=== PATIENT | male | born 1995 | race Caucasian/White ===

== ENCOUNTER 2018-11-24 11:48 | Emergency (ER) | payer OTHER, SELFPAY ==
[2018-11-24 11:50] VITALS: BP 136/74; PULSE 73; RESP 17; TEMP 36.8; O2SAT 98; BMI 29.1
--- NOTE | 2018-11-24 11:54 | RAD_ITS ---
STUDY: X-RAY - LEFT HAND, ATTENTION FIFTH FINGER REASON FOR EXAM: Male, 23 years old. Injury and laceration. TECHNIQUE: 3 view(s) of the finger were obtained. COMPARISON: None. FINDINGS: Normal metacarpal head. Normal metacarpophalangeal joint. Normal proximal phalanx. Normal middle phalanx. Nondisplaced fracture through the distal portion of the distal phalanx. Normal proximal interphalangeal joint. Normal distal interphalangeal joint. Soft tissue laceration. RAD/Finger(s) Min 2 Views IMPRESSION: Nondisplaced fracture at the tuft of the distal phalanx of the fifth finger with overlying soft tissue laceration. Electronically Signed: Otilio Plaza MD at 12:19 EST , Service support ,
--- NOTE | 2018-11-24 15:15 | ED.VISSUMM ---
- ER Visit Summary Date of Service: 11/24/18 Chief Complaint: Left fifth digit crush injury History of Present Illness: The patient is a 23 M with a left fifth digit crush injury at work prior to arrival. No other injury Physical Examination: There is a volar avulsion, there is no nailbed involvement. There is quite a bit of tenderness over the distal phalanx. Emergency Department Course and Treatment: Patient has a tuft fracture, this is presumed to be an open fracture, Ancef and tetanus were given. Patient will be placed on antibiotics, there is no wound to suture therefore Gelfoam was placed and wound was dressed. Patient will be followed up with orthopedics. Disposition: Discharge stable condition Impression: Open fifth digit tuft fracture This note was generated with [employer] dictation software. It may contain incorrect words, spelling, and punctuation that were not noted in review of the chart prior to signing ED Disposition - Plan for ED Patient: Disposition: Home or Assisted Living Instructions: ED Fx Finger Open Prescriptions: Cephalexin [Keflex] 500 mg PO 4X/DAY #20 cap Referrals: Jeevan Santiago DO [STAFF PHYSICIAN] - 3-5 Days
[2018-11-24] MEDS: Diphth,Pertuss(Acell),Tet Vac 0.5 ML Vial IM (15:32)
[2018-11-24 15:39] VITALS: PULSE 83; RESP 12
[2018-11-24 15:49] VITALS: RESP 14
--- NOTE | 2018-11-24 16:06 | ED.RN ---
spoke with pharmacy, they are having a difficult time mixing the ancef.
== END 2018-11-24 16:34 | disposition home or self-care (01) ==
PROVIDERS: Emergency Provider Emergency Medicine
DX: S62.667B Nondisplaced fracture of distal phalanx of left little finger, initial encounter for open fracture (principal); X58.XXXA Exposure to other specified factors, initial encounter; Y93.9 Activity, unspecified; Y92.9 Unspecified place or not applicable; Y99.0 Civilian activity done for income or pay
CPT/HCPCS: 73140; 90471; 90715; 96372; 99283